=== PATIENT | male | born 2000 | race Caucasian/White ===

== ENCOUNTER 2019-09-14 21:38 | Emergency (ER) | payer OTHER ==
[2019-09-14] MEDS ORDERED: NORMAL SALINE 1000 ML 1,000 ML IV ONE (22:09)
--- NOTE | 2019-09-14 22:12 | ER Document Report ---
ED Medical Screen (RME) - General Chief Complaint: Bloody Stools Stated Complaint: BLOODY STOOL/FAINTING/VOMITING BLOOD Time Seen by Provider: 09/14/19 22:09 Primary Care Provider: YA BEEBE MD [Primary Care Provider] - Follow up as needed Notes: Patient presents complaining of abdominal pain, nausea, vomiting and initially diarrhea. Patient states that he had blood in his stool and in his emesis. Patient states that his stool has since firmed up and he does complain of constipation symptoms now. Patient complains of abdominal tenderness across the mid abdomen. Patient complains of feeling confused in which he states that his vision seems to be hazy and he has a headache. Patient presently awake alert and oriented in triage. I have greeted and performed a rapid initial assessment of this patient. A comprehensive ED assessment and evaluation of the patient, analysis of test results and completion of the medical decision making process will be conducted by additional ED providers. TRAVEL OUTSIDE OF THE [place] IN LAST 30 DAYS: No - Related Data Allergies/Adverse Reactions: No Known Allergies Allergy (Unverified 09/14/19 22:05) Physical Exam - Vital signs Vitals: Temp Pulse Resp BP Pulse Ox 98.0 F 94 20 145/83 H 97 09/14/19 21:48 09/14/19 21:48 09/14/19 21:48 09/14/19 21:48 09/14/19 21:48 - General General appearance: Appears well, Alert Notes: Mid abdomen tenderness Course - Vital Signs Vital signs: Temp Pulse Resp BP Pulse Ox 98.2 F 81 22 H 112/67 98 09/14/19 21:54 09/14/19 21:54 09/14/19 21:54 09/14/19 21:54 09/14/19 21:54 Doctor's Discharge - Discharge Referrals: YA BEEBE MD [Primary Care Provider] - Follow up as needed
[2019-09-14 22:33] LABS: ABSOLUTE LYMPHOCYTES (AUTO) 1.3 10^3/uL (0.5-4.7); ABSOLUTE MONOCYTES (AUTO) 0.4 10^3/uL (0.1-1.4); ABSOLUTE NEUT (AUTO) 3.6 10^3/uL (1.7-8.2); BASOPHILS % (AUTO) 0.4 % (0-2); EOSINOPHILS % (AUTO) 0.9 % (0-6); HEMATOCRIT 44.8 % (37.9-51.0); HEMOGLOBIN 15.5 g/dL (13.5-17.0); LYMPHOCYTES % (AUTO) 24.3 % (13-45); MEAN CORPUSCULAR HEMOGLOBIN 32.7 pg (27.0-33.4); MEAN CORPUSCULAR HGB CONC 34.6 g/dL (32.0-36.0); MEAN CORPUSCULAR VOLUME 95 fl (80-97); MONOCYTES % (AUTO) 7.6 % (3-13); PLATELET COUNT 200 10^3/uL (150-450); RED BLOOD COUNT 4.73 10^6/uL (4.35-5.55); SEGMENTED NEUTROPHILS % (AUTO) 66.8 % (42-78); TOTAL CELLS COUNTED % (AUTO) 100 %; WHITE BLOOD COUNT 5.3 10^3/uL (4.0-10.5)
[2019-09-14 22:38] LABS: APPEARANCE,URINE CLEAR; BILIRUBIN,URINE NEGATIVE (NEGATIVE); COLOR,URINE STRAW; GLUCOSE, URINE NEGATIVE (NEGATIVE); KETONES,URINE NEGATIVE (NEGATIVE); LEUKOCYTE ESTERASE,URINE NEGATIVE (NEGATIVE); NITRITE,URINE NEGATIVE (NEGATIVE); PROTEIN,URINE NEGATIVE (NEGATIVE); URINE SPECIFIC GRAVITY 1.004; UROBILINOGEN,URINE NEGATIVE mg/dL (<2.0)
[2019-09-14 22:41] LABS: INTERNATIONAL RATION (INR) 1.05; PROTHROMBIN TIME 13.8 SEC (11.4-15.4)
[2019-09-14 22:42] LABS: PARTIAL THROMBOPLASTIN TIME 25.4 SEC (23.5-35.8)
[2019-09-14 22:46] LABS: ALBUMIN 5.4 g/dL (3.5-5.0); ALKALINE PHOSPHATASE 59 U/L (38-126); ANION GAP 12 (5-19); ASPARTATE AMINO TRANSFERASE 20 U/L (17-59); BILIRUBIN,DIRECT 0.1 mg/dL (0.0-0.4); BILIRUBIN,TOTAL 0.9 mg/dL (0.2-1.3); BLOOD UREA NITROGEN 11 mg/dL (7-20); CALCIUM 10.4 mg/dL (8.4-10.2); CARBON DIOXIDE 30 mmol/L (22-30); CHLORIDE 100 mmol/L (98-107); GLUCOSE 102 mg/dL (75-110); POTASSIUM 4.2 mmol/L (3.6-5.0); TOTAL PROTEIN 8.4 g/dL (6.3-8.2)
[2019-09-14] MEDS: ONDANSETRON HCL INJ/PF 4 MG/2 ML SDV IV ONE ×2 (23:15→23:16)
--- NOTE | 2019-09-15 01:04 | ER Document Report ---
ED General - General Chief Complaint: Bloody Stools Stated Complaint: BLOODY STOOL/FAINTING/VOMITING BLOOD Time Seen by Provider: 09/14/19 22:09 Primary Care Provider: YA BEEBE MD [DIONICIO ROWE] - Follow up as needed Notes: 19-year-old male presents the emergency department with 2 separate complaints. Initial complaint is that for the past several days he has had some nausea, vomiting and diarrhea as well as abdominal cramping and pain. He started taking some Pepto-Bismol yesterday and it firmed up a stool but today his stool turned black. Denies it being tarry or sticking to the side of the toilet, denies any coffee-ground emesis but does state that he had some redness in his vomit. Both the vomiting and the diarrhea have stopped as has the abdominal pain. Denies any fevers. Denies any well water or other untreated water exposure. Secondary complaint is that the patient has been having some dizziness for the past 3 weeks. Patient describes dizziness as feeling like his eyes are moving around and things are getting jumbled, states he is having some difficulty reading but also feels like his thoughts are somewhat hazy. Patient states that this did start around the same time that he ordered new glasses but ordered them in the wrong prescription, when he switch back to his old prescription it did not improve. Denies any syncopal episode associated with this, denies any chest pain or shortness of breath. Does state that it worsens somewhat when he stands. TRAVEL OUTSIDE OF THE [place] IN LAST 30 DAYS: No - Related Data Allergies/Adverse Reactions: No Known Allergies Allergy (Unverified 09/14/19 22:05) Home Medications: B-12 TABS Past Medical History - General Information source: Patient - Social History Smoking Status: Former Smoker Frequency of alcohol use: Occasional Family History: Reviewed & Not Pertinent Patient has suicidal ideation: No Patient has homicidal ideation: No Review of Systems - Review of Systems Constitutional: No symptoms reported EENT: See HPI Cardiovascular: No symptoms reported Respiratory: No symptoms reported Gastrointestinal: See HPI Neurological/Psychological: See HPI -: Yes All other systems reviewed and negative Physical Exam - Vital signs Vitals: Temp Pulse Resp BP Pulse Ox 98.0 F 94 20 145/83 H 97 09/14/19 21:48 09/14/19 21:48 09/14/19 21:48 09/14/19 21:48 09/14/19 21:48 Interpretation: Hypertensive - Notes Notes: GENERAL: Alert, interacts well. More anxious on examination. HEAD: Normocephalic, atraumatic EYES: Pupils equal, round and reactive to light, extraocular movements intact. ENT: Oral mucosa moist, tongue midline. NECK: Full range of motion, supple, trachea midline. LUNGS: Clear to auscultation bilaterally, no wheezes, rales or rhonchi, no res piratory distress. HEART: Regular rate and rhythm, no murmurs, gallops, rubs. ABDOMEN: Soft, nontender, nondistended, bowel sounds present in all 4 quadrants. RECTAL: Stool, Hemoccult negative, no hemorrhoids, no blood, no fissures. EXTREMITIES: Moves all 4 extremities spontaneously, no edema, radial and dorsalis pedis pulses 2/4 bilaterally. No cyanosis. NEUROLOGICAL: Alert and oriented x3, normal speech, cranial nerves II through XII grossly intact, biceps and patellar DTRs 2+ bilaterally. Ugluiy-lh-kcyl and ykjg-ew-cndq testing intact. PSYCH: Somewhat anxious. SKIN: Warm, Dry, normal turgor, no rashes or lesions noted. Course - Re-evaluation Re-evalutation: 09/15/19 01:01 CBC unremarkable, coags normal, CMP grossly unremarkable, only slightly elevated calcium, total protein and albumin, lipase normal, urinalysis unremarkable. Patient has a negative Hemoccult. Neurologic exam is completely intact. Likely Pepto-Bismol is what turned his stool black. Recommended to the patient that he follow-up with ophthalmology to have his vision will be checked to make sure that his prescription is accurate. No focal neurologic deficits, no indication for CT scan or MRI at this time. Discharged home. - Vital Signs Vital signs: Temp Pulse Resp BP Pulse Ox 98.2 F 81 22 H 112/67 98 09/14/19 21:54 09/14/19 21:54 09/14/19 21:54 09/14/19 21:54 09/14/19 21:54 - Laboratory Result Diagrams: 09/14/19 21:20 09/14/19 21:20 Laboratory results interpreted by me: 09/14/19 21:20 Calcium 10.4 H Total Protein 8.4 H Albumin 5.4 H Discharge - Discharge Clinical Impression: Nausea vomiting and diarrhea, Dizziness Condition: Stable Disposition: HOME, SELF-CARE Additional Instructions: Today did not see any signs of infection or bleeding from your bowels. It is likely the Pepto-Bismol that caused her stool to turn black. In the future if you are having diarrhea consider using Imodium instead reports generic equivale nt loperamide as this will not cause your stool to turn black. For your dizziness/abnormal vision please make sure you follow-up with either an hall worker or tool drawing checker to have your prescription rechecked. If your prescription is correct yet you are still having symptoms of abnormal vision and somewhat hazy thoughts please have your primary care physician refer you to a neurologist for further outpatient follow-up. If you develop headache, worsening symptoms, fevers or severe confusion or passing out or any new or concerning symptoms please return to the emergency department for further evaluation. Referrals: YA BEEBE MD [DIONICIO ROWE] - Follow up as needed
[2019-09-15 01:39] VITALS: BP 132/84
== END 2019-09-15 01:45 | disposition home or self-care (01) ==
LOC: ER 21:38
DX: R11.2 Nausea with vomiting, unspecified (principal); R19.7 Diarrhea, unspecified; R19.5 Other fecal abnormalities; R10.9 Unspecified abdominal pain; R42 Dizziness and giddiness; Z79.899 Other long term (current) drug therapy; Z87.891 Personal history of nicotine dependence
CPT/HCPCS: 99284; 96360; 36415; 83690; 85025; 85610; 85730; 80053; 81001; J7030; J2405